=== PATIENT | male | born 1955 | race African-American/Black ===

== ENCOUNTER 2024-11-15 10:15 | Emergency (ER) | payer OTHER ==
[~2024-11-15] VITALS: Ht 177.8 cm; Wt 95.0 kg
[2024-11-15 10:17] VITALS: O2SAT 100
[2024-11-15] MEDS: ACETAMINOPHEN 325MG TABLET PO ONE (10:57)
[2024-11-15 11:08] LABS: BASOPHILS % 0.5 % (0.0-2.0); EOSINOPHILS % 1.4 % (0.0-5.0); HEMATOCRIT. 38.8 % (42.0-52.0); HEMOGLOBIN. 12.9 g/dL (14.0-18.0); LYMPHOCYTES % 21.3 % (20.0-50.0); MEAN CORPUSCULAR HEMOGLOBIN 28.4 pg (28.0-32.0); MEAN CORPUSCULAR HGB CONC 33.3 g/dL (31.0-37.0); MEAN CORPUSCULAR VOLUME 85.3 fL (80.0-94.0); MEAN PLATELET VOLUME 7.5 fl (7.4-10.4); MONOCYTES % 7.3 % (2.0-8.0); NEUTROPHILS % 69.5 % (40.0-76.0); PLATELET 281 x1000/uL (130-400); RED BLOOD CELL COUNT 4.55 mill/uL (4.7-6.1); RED CELL DISTRIBUTION WIDTH 14.8 % (11.6-14.6); WHITE BLOOD COUNT 7.2 x1000/uL (4.5-11.0)
[2024-11-15 11:17] LABS: CARBON DIOXIDE 27 mEq/L (21-32); CHLORIDE 105 mEq/L (98-107); POTASSIUM 4.8 mEq/L (3.5-5.1); SODIUM 138 mEq/L (136-145)
[2024-11-15 11:18] LABS: CALCIUM 9.6 mg/dL (8.7-10.4)
[2024-11-15 11:22] LABS: CREATININE 1.2 mg/dL (0.6-1.3); GLUCOSE 174 mg/dL (70-105)
[2024-11-15 11:23] LABS: UREA NITROGEN BLOOD 14 mg/dL (9-23)
[2024-11-15 11:24] LABS: TROPONIN I HIGH SENSITIVITY 5 ng/L (3.0-53)
[2024-11-15] MEDS ORDERED: TOPUD PO (12:44)
[2024-11-15 13:40] VITALS: BP 154/85; PULSE 75; RESP 14; TEMP 36.94740; O2SAT 98
== END 2024-11-15 13:49 | disposition home or self-care (01) ==
LOC: ER 10:28
DX: M25.561 Pain in right knee (principal); R55 Syncope and collapse; E78.00 Pure hypercholesterolemia, unspecified; I10 Essential (primary) hypertension
CPT/HCPCS: 36415; 71045; 73562; 80048; 84484; 85025; 93005; 99285